=== PATIENT | male | born 1995 | race Caucasian/White ===

== ENCOUNTER 2017-03-29 17:25 | Emergency (ER) | payer SELFPAY ==
[~2017-03-29] VITALS: Ht 172.7 cm; Wt 74.9 kg
[2017-03-29 19:28] LABS: ASPARTATE AMINO TRANSFERASE 99 U/L (15-37); BLOOD UREA NITROGEN 15 mg/dL (7-18)
[2017-03-29 19:30] LABS: HEMATOCRIT 44.8 % (39.2-51.8); WHITE BLOOD COUNT 10.4 x10^3/uL (3.4-10)
[2017-03-29 19:34] LABS: IS PT STATUS REG ER OR PRE ER? YES
[2017-03-29 20:01] VITALS: BP 135/86
== END 2017-03-29 20:05 | disposition home or self-care (01) ==
LOC: ED 19:59
DX: R07.2 Precordial pain (principal); R06.00 Dyspnea, unspecified; Z87.891 Personal history of nicotine dependence
CPT/HCPCS: 36415; 71020; 80053; 84484; 85025; 93005; 99285

== ENCOUNTER 2017-05-23 12:49 | Emergency (ER) | payer OTHER ==
[~2017-05-23] VITALS: Ht 172.7 cm; Wt 70.0 kg
[2017-05-23] MEDS ORDERED: SODIUM CHLORIDE FLUSH 10ML SYR IVF ONE (14:00)
[2017-05-23] MEDS ORDERED: ONDANSETRON 2MG/ML, 2ML IVPush ONE (14:00)
[2017-05-23] MEDS ORDERED: SODIUM CHLORIDE 0.9% 1,000ML IVBOLUS ONE (14:00)
[2017-05-23 14:12] LABS: BASOPHILS # (AUTO) 0.05 x10^3/uL (0-0.1); BASOPHILS % (AUTO) 1 % (0-1); EOSINOPHILS # (AUTO) 0.01 x10^3/uL (0-0.4); EOSINOPHILS % (AUTO) 0 % (1-7); LYMPHOCYTES # (AUTO) 1.14 x10^3/uL (1-3.4); LYMPHOCYTES % (AUTO) 13 % (22-44); MD NO; MEAN CORPUSCULAR HEMOGLOBIN 29.1 pg (27.5-34.5); MEAN CORPUSCULAR HGB CONC 33.2 g/dL (33.2-36.2); MEAN CORPUSCULAR VOLUME 87.8 fL (81-97); MEAN PLATELET VOLUME 9.4 fL (7.4-10.4); MONOCYTES # (AUTO) 0.25 x10^3/uL (0.2-0.8); MONOCYTES % (AUTO) 3 % (2-9); NEUTROPHILS # (AUTO) 7.05 x10^3/uL (1.8-6.8); NEUTROPHILS % (AUTO) 83 % (42-75); PLATELET COUNT 320 x10^3/uL (130-400); RED BLOOD COUNT 5.47 x10^6/uL (4.38-5.82); RED CELL DISTRIBUTION WIDTH 13.3 % (9.4-14.8)
[2017-05-23 14:17] LABS: ALBUMIN 4.6 g/dL (3.4-5.0); ANION GAP 8 mmol/L (5-15); CHLORIDE 106 mmol/L (98-107); CREATININE 1.19 mg/dL (0.7-1.3)
[2017-05-23 14:23] LABS: ALANINE AMINOTRANSFERASE 63 U/L (12-78); ALKALINE PHOSPHATASE 79 U/L (45-117); BILIRUBIN,TOTAL 0.4 mg/dL (0.2-1.0); TOTAL PROTEIN 8.8 g/dL (6.4-8.2)
[2017-05-23] MEDS ORDERED: MAALOX/HYOSCYAMINE/LIDOCAINE 45 ML BTL ONE (15:50)
[2017-05-23 15:57] VITALS: BP 122/72
[2017-05-23] MEDS ORDERED: MAALOX/HYOSCYAMINE/LIDOCAINE 45 ML BTL PO ONE (16:00)
== END 2017-05-23 17:33 | disposition home or self-care (01) ==
LOC: ED 17:20
DX: K29.00 Acute gastritis without bleeding (principal)
CPT/HCPCS: 36415; 80051; 80053; 83690; 85025; 99284

== ENCOUNTER 2018-05-16 19:17 | Emergency (ER) | payer MEDICAID ==
[~2018-05-16] VITALS: Ht 175.3 cm; Wt 63.2 kg
--- NOTE | 2018-05-16 19:32 | NUR ---
breezy valdivia, pt not making complete answers, asked pt if he was [place] today [place], pt also reports he "took a pill from my cousin", reports probably ectasy. monitors on, ekg done, pt has no medical complaints.
--- NOTE | 2018-05-16 19:58 | NUR ---
Pt ambulatory in room getting dressed, when asked if he knew where he was pt just stared at RN, I asked him where he lives, he stated "[facility] Pt does not answer any other questions at this time, continues to stare at RN without conversing. Pt redirected back to [facility], given warm blanket.
[2018-05-16 20:51] VITALS: BP 125/86
== END 2018-05-16 20:53 | disposition home or self-care (01) ==
LOC: ED 20:00
DX: F15.129 Other stimulant abuse with intoxication, unspecified (principal); R44.3 Hallucinations, unspecified; Z87.19 Personal history of other diseases of the digestive system
CPT/HCPCS: 99281; 99283

== ENCOUNTER 2018-05-17 01:13 | Emergency (ER) | payer MEDICAID | END 2018-05-17 02:15 | disposition left against medical advice (07) | LOC: ED 01:19 | DX: Z53.21 Procedure and treatment not carried out due to patient leaving prior to being seen by health care provider (principal) | CPT/HCPCS: 93005 ==